=== PATIENT | male | born 1965 | race Two or more races ===

== ENCOUNTER 2016-08-24 21:56 | Observation (INO) | payer OTHER ==
--- NOTE | ~2016-08-24 | MR18 ---
[facility] A Service of [facility] & [facility] RADIOLOGY TEXT RESULTS PATIENT: ADRIANA PARSONS LOCATION: [facility] [address]21-23 : [birth year] UNIT #: [id number] AGE: [address]: Kena Rogers MD SEX: M ORDER DR: [id number] [place] [address] [place], [place] [address] [id number] MR#: [id number] Acc #: [id number] NAME: ADRIANA PARSONS : 1965 SEX: M STUDY DATE/TIME: 08/25/2016 10:51 UNIT: [facility] ROOM: [id number] STUDY DESCRIPTION: MR Brain Wo Contrast Attending Physician: Kena Rogers M.D. Ordering Physician: Bacilio Morales M.D. MRI CENTER REPORT This report is preliminary unless electronic signature is present. EXAM MRI brain without HISTORY Trauma. The patient fell yesterday and hit his head on the floor. Now he cannot remember basic facts about himself. History of hypertension and diabetes. COMMENT MRI of the brain was performed without contrast using routine 1.5T imaging technique. Head CT comparison 08/24/2016. There is no evidence for a recent ischemic insult on the diffusion series. No Chiari-I malformation. No MRI evidence for intracranial hemorrhage. No extra axial fluid collection. Mild generalized prominence of perivascular spaces and moderate nonspecific white matter disease with too numerous to count small foci of white matter signal abnormality seen predominately in the subcortical white matter to a lesser extent in the deep white matter and the periventricular white matter. This is very nonspecific. There is no MRI evidence for intracranial hemorrhage. It is most likely given history of diabetes and hypertension that the white matter disease is due to small vessel disease. It is unlikely that the amount of white matter disease seen is related to the recent fall, particularly without hemorrhagic transformation. The major intracranial flow voids are maintained. The mastoid air cells are clear. Paranasal sinuses are clear. No intracranial mass effect. IMPRESSION 1. No evidence for a recent ischemic insult on the diffusion series. 2. Moderate nonspecific white matter disease probably due to small vessel disease given the risk factors. See above. 3. No extraaxial fluid collection or intracranial mass effect. No MRI evidence for intracranial hemorrhage. [facility]. [facility] A Service of [facility] RADIOLOGY TEXT RESULTS PATIENT: ADRIANA PARSONS LOCATION: [facility] [address]-36 : [birth year] UNIT #: [id number] AGE: [address]: Kena Rogers MD SEX: M ORDER DR: 4. Mild prominence of perivascular spaces in general for age group. Dictated by... Nesha Ly M.D. THIS IS AN ELECTRONICALLY VERIFIED REPORT Nesha Ly M.D. at 08/26/2016 6:19 AM MAMIE/rhoda TD: 08/26/2016 00:49 JOB #: [id number] MRI CENTER REPORT COPY
--- NOTE | ~2016-08-24 | HP ---
Unit #: [id number] #: [id number] Patient: ADRIANA PARSONS [id number] [facility] [address] [place], [place] [address] [id number] I MR#: [id number] NAME: ADRIANA PARSONS ROOM: [id number] Age: 51 Sex: M Admission Date: 08/25/2016 : 1965 Attending Physician: Kena Rogers M.D. HISTORY AND PHYSICAL HISTORY OF PRESENT ILLNESS This 51-year-old Vasiliy male presented to [facility] after a fall at home and not able to memorize anything. The patient speaks Bhutanese only. Therefore, history was obtained with the help of ER staff who can speak Bhutanese. The patient was in his usual state of health when he went to [place] for almost 4 weeks and came back 2 days ago. The patient's roommate picked him up from the airport and states that the patient was his normal self. Please make note the patient's roommate is also present with him, and history was also obtained through his assistance, but he is not able to speak Nepali either. The patient slipped in his shower and hit the back of his head. Since then, he cannot remember anything. He is complaining of mild headache, which is 4/10, but denies any visual problems. There is no focal weakness. Again, the patient denies any visual problems. There is no history of chest pain, tightness, nausea, vomiting or abdominal pain. Otherwise, the patient feels comfortable. He was brought to the ER. CT scan of the head was done, which was negative. ER physician spoke with neurologist, Dr. Aquino, and it was decided to keep the patient in the hospital to do MRI. Unable to obtain complete review of systems because of the language barrier, but through the barrel rifler broach, the patient has only headache. There are no other complaints. PAST MEDICAL HISTORY 1. History of hypertension. 2. The patient says that he was once told he is diabetic but does not take any medications. PAST SURGICAL HISTORY None, as per patient. SOCIAL HISTORY The patient denies smoking, drinking or use of illicit drugs. He is , and he has 2 sons who are not in touch with him because of the divorce. FAMILY HISTORY Family history is positive for hypertension. ALLERGIES There are no known drug allergies. Unit #: [id number] #: [id number] Patient: ADRIANA PARSONS HOME MEDICATIONS As per ER sheet, the patient takes aspirin, Vasotec, Hydrochlorothiazide and Protonix. PHYSICAL EXAMINATION GENERAL: The patient is lying in bed. Comfortable. VITAL SIGNS: Vital signs reveal a temperature of 97.7, pulse 96 per minute, respiratory rate 14 per minute, blood pressure 120/86. HEENT: Examination revealed no conjunctival congestion. Sclera is nonicteric. NECK: Neck is supple. Trachea is central. RESPIRATORY: Examination revealed equal bilaterally. There are no wheezes or crackles. HEART: Regular rate and rhythm. S1, S2. ABDOMEN: Abdomen is soft, nontender. Bowel sounds are present in all 4 quadrants. SKIN: Skin is warm and dry. NEUROLOGIC: The patient is alert to person, place and time. Strength is 5/5 bilaterally. Sensations are intact. Pupils are equal and reactive to light. DIAGNOSTIC STUDIES CARDIOVASCULAR: The patient's EKG revealed sinus tachycardia with heart rate of 102 per minute with nonspecific ST changes. IMAGING: CT scan of the head did not reveal any acute findings as per ER. LABS: The patient's creatinine is 1, sodium 137, potassium 3.6. AST and ALT are within normal limits. WBC is 7.5, hemoglobin 15, platelet count 211. Urinalysis revealed 0-2 WBCs. Urine tox screen was negative. ASSESSMENT This 51-year-old male presented to [facility] after a fall and hitting his head. PLAN 1. Closed head injury with amnesia. The patient will have an MRI, and Dr. Aquino will see the patient in consultation. The patient does not have any focal neurologic symptoms, and he is comfortable. We will keep the patient in the hospital for observation. 2. Hypertension. Will continue the patient's home medications. 3. Questionable history of diabetes. I will order a hemoglobin A1C in the a.m. 4. The plan was discussed in detail with the patient and his roommate, whom the patient states is like his son, and information can be provided to him. 5. The patient stated that he was not taking his medications at home because he ran out of his insurance; therefore, I will add Vasotec as he was apparently taking at home and able to afford. Dictated by Jovana Cyr Unit #: [id number] #: [id number] Patient: ADRIANA PARSONS TD: 08/25/2016 11:50 JOB #: [id number] HISTORY AND PHYSICAL X Kena Rogers MD HISTORY AND PHYSICAL
--- NOTE | ~2016-08-24 | CR72 ---
[facility]. [facility] A Service of [facility] & [facility] RADIOLOGY TEXT RESULTS PATIENT: ADRIANA PARSONS LOCATION: [facility] [id number] : [birth year] UNIT #: [id number] AGE: [address]: Kena Rogers MD SEX: M ORDER DR: [id number] [place] [address] [place], [place] [address] [id number] I MR#: [id number] Acc #: [id number] NAME: ADRIANA PARSONS : 1965 SEX: M STUDY DATE/TIME: 08/24/2016 22:01 UNIT: [facility] ROOM: 35463 STUDY DESCRIPTION: CR Chest Single View Portable Attending Physician: Kena Rogers M.D. Ordering Physician: Bacilio Morales M.D. MEDICAL IMAGING REPORT This report is preliminary unless electronic signature is present EXAM Portable chest HISTORY Chest pain for 3 days. FINDINGS A portable view of the chest was obtained and compared to 09/16/2014. The heart size and vascularity are normal and the lungs are clear, and the bones are normal. IMPRESSION No active disease. Dictated by... Rancho Demarco M.D. THIS IS AN ELECTRONICALLY VERIFIED REPORT Rancho Demarco M.D. at 08/25/2016 4:33 PM IDALIA/ginna TD: 08/25/2016 15:28 JOB #: [id number] MEDICAL IMAGING REPORT COPY
--- NOTE | ~2016-08-24 | CO ---
Unit #: [id number] #: [id number] Patient: ADRIANA PARSONS [id number] [facility] [address] [place], [place] [address] [id number] Guy MR#: [id number] NAME: ADRIANA PARSONS ROOM: 91890 Age: 51 Sex: M Admission Date: 08/25/2016 : 1965 Attending Physician: Kena Rogers M.D. Consultation Date: 08/25/2016 CONSULTATION REPORT REASON FOR CONSULTATION Status post fall and hitting his head and some memory problems. PATIENT IDENTIFICATION This is a 51-year-old, right-handed, Bahamian gentleman, who was evaluated in room 23 in the emergency room at [facility]. SOURCE OF INFORMATION The patient and my discussion with the ER physician. Also Tiago harrington is one of our staff and he acted as truck repair service estimator because this gentleman does not speak any Maltese. PROBLEM LIST 1. Hypertension. 2. GERD. 3. It was told that he has history of diabetes. HISTORY OF PRESENT ILLNESS This is a 51-year-old gentleman, who presented yesterday to the emergency room reporting that he fell and hit his head and then afterwards he could not remember anything. When asked him, he is now telling me that he started remembering things and he remember that he was trying to wash his feet and he bent down and bent too much and fell and the next thing he woke up in the bathroom in the shower. He was having trouble remembering what happened. He did not know that he had just come back from [place], so when the ER physician called me, we already got a CT and I want to make sure that he has an MRI and it does not show any injury specially something like temporal lobe injury. MRI was unremarkable except for some significant frontal small vessel type changes and nothing else was seen and his memory is almost back to almost normal. He knew what happened and he is remembering things more and more. No history of seizures. No nausea or vomiting. No hemorrhage known to us. He denies drugs or alcohol. No prior history of seizure or memory problem. There is some concern that he may have emotional and has exaggeration of some symptoms, but I have no way to confirm that. Unit #: [id number] #: [id number] Patient: ADRIANA PARSONS That is the report that the staff told me and the records, but I do not have any family member to confirm. PAST MEDICAL HISTORY As discussed above. PAST SURGICAL HISTORY Essentially nothing. ALLERGIES No known drug allergies. HOME MEDICATIONS Apparently was aspirin, Vasotec, hydrochlorothiazide, and Protonix. FAMILY HISTORY Hypertension. SOCIAL HISTORY The patient apparently is . He has 2 sons. Apparently, denies tobacco, alcohol, or drug use. REVIEW OF SYSTEMS At present, he is concerned about what happened and the memory, but otherwise no headaches, no double vision, no other issues. No weight issues, fever, chills, rigor, or sweats. HEENT: No headaches, double vision, earache, runny nose, or sore throat. CARDIOVASCULAR: No chest pain, clubbing, cyanosis, orthopnea, or palpitation. PULMONARY: No shortness of air, cough, or expectoration. ABDOMEN: No nausea, vomiting, diarrhea, or constipation. GENITOURINARY: No genitourinary symptoms. EXTREMITIES: No extremity problems. BACK: No back problem. PSYCHIATRIC: No psychotic issue. NEUROLOGIC: As discussed. No other hematologic, dermatologic, or endocrine issues. PHYSICAL EXAMINATION VITAL SIGNS: Temperature 97.7, pulse 98, respirations 21, blood pressure 160/82. NEUROLOGIC: The patient is awake. He is alert. He is oriented. He can name and he can follow commands. No right or left confusion. No finger agnosia. Cranial nerve examination demonstrates full woodard of vision to confrontation. Eye movements are conjugate. I did not see any ptosis. I did not see any nystagmus. Extraocular movements are intact. Sensation on the face and scalp are normal. Strength of muscles of facial expression normal. Hearing seemed to be intact bilaterally. Tongue was midline. Uvula was midline. Palate elevation was normal. Head turning and shoulder shrugs are unremarkable. Motor examination demonstrated normal bulk, tone. Strength was essentially 5/5. Sensory examination intact for soft touch and pain sensation. No Unit #: [id number] #: [id number] Patient: ADRIANA PARSONS extinction was seen. Romberg was not evaluated. Gait examination was deferred. I could not get any reflexes. Toes are equivocal. Coordination was normal. DIAGNOSTIC STUDIES LABORATORY RESULTS: Reviewed. IMAGING STUDIES: Reviewed. IMPRESSION Likely postconcussion syndrome. I had Tiago explain to him what he can expect. His memory is coming back. Retrograde and anterograde amnesia is not uncommon in such condition and he is doing very well otherwise. I recommend that he observe and see how things go. If, later on, his symptoms continue or the triad of postconcussion syndrome occur, I explained to him, then he may need to see a neurologist. If he has further events then cognitive evaluation may be done. Neurologically, I will observe him. He may be discharged. Call me for any other questions, issues, or concerns. If there is a seizure or other issues, please return to the emergency room. Dictated by... Jovana Guevara/markos TD: 08/27/2016 06:19 JOB #: [id number] CONSULTATION REPORT X Vinita Aquino MD X CONSULTATION REPORT
--- NOTE | ~2016-08-24 | CT71 ---
[facility]. [facility] A Service of [facility] & [facility] RADIOLOGY TEXT RESULTS PATIENT: ADRIANA PARSONS LOCATION: [facility] [address]-35 : [birth year] UNIT #: [id number] AGE: [address]: Kena Rogers MD SEX: M ORDER DR: [id number] [id number] [place], [place] [address] [id number] I MR#: [id number] Acc #: [id number] NAME: ADRIANA PARSONS : 1965 SEX: M STUDY DATE/TIME: 08/24/2016 22:12 UNIT: [facility] ROOM: 57347 STUDY DESCRIPTION: CT Head Wo Contrast Attending Physician: Kena Rogers M.D. Ordering Physician: Bacilio Morales M.D. MEDICAL IMAGING REPORT This report is preliminary unless electronic signature is present EXAM CT scan of the head without contrast INDICATIONS Fall today, this morning. Confusion. Patient cannot remember the last 3 days. Head trauma. FINDINGS Axial noncontrast images were obtained from the skull base to the vertex. Ventricular size and configuration are normal. There is no evidence of acute infarct or hemorrhage. There are no extra-axial fluid collections. No mass lesion or mass effect is seen. There are no skull fractures. IMPRESSION Normal noncontrast head CT. Dictated by... Rancho Demarco M.D. THIS IS AN ELECTRONICALLY VERIFIED REPORT Rancho Demarco M.D. at 08/25/2016 4:33 PM IDALIA/ginna TD: 08/25/2016 15:26 JOB #: [id number] MEDICAL IMAGING REPORT COPY
--- NOTE | ~2016-08-24 | EKG ---
PATIENT: ADRIANA PARSONS UNIT #: [id number] Ventricular Rate: 102 BPM Atrial Rate: 102 BPM P-R Interval: 144 ms QRS Duration: 84 ms Q-T Interval: 332 ms QTC Calculation(Bezet): 432 ms P [place]: 48 degrees Calculated R [place]: 19 degrees Calculated T [place]: 30 degrees Diagnosis Line: Sinus tachycardia Diagnosis Line: Nonspecific T wave abnormality Diagnosis Line: Abnormal ECG Diagnosis Line: Diagnosis Line: Confirmed by IZABELA ANN MD ([id number]) on Diagnosis Line: 08/28/2016 3:58:10 PM INTERPRETING MD: MARISSA INGRAM
[~2016-08-24 21:56] MED LIST: ASPIRIN81 MG PO; HYDROCHLOROTH12.5 M1 PO; PROTONIX PO; VASORETIC; VASOTEC2.5 M1 PO
[2016-08-24 22:57] LABS: URINE SOURCE CLEAN CATCH
[2016-08-24 23:06] LABS: URINE APPEARANCE CLEAR; URINE BILIRUBIN NEG (NEG); URINE BLOOD 2+ (NEG); URINE COLOR YELLOW; URINE GLUCOSE NEG (NEG); URINE KETONE NEG (NEG); URINE LEUKOCYTE ESTERASE NEG (NEG); URINE NITRATE NEG (NEG); URINE PH 5.5 (5-8); URINE PROTEIN NEG (NEG); URINE SPECIFIC GRAVITY 1.021 (1.003-1.035); URINE UROBILINOGEN 0.2 MG/DL (NEG)
[2016-08-24 23:09] LABS: URINE BACTERIA AUWI NEG (NEGATIVE); URINE SQUAMOUS EPITHELIAL CELL NONE SEEN /[HPF]; UWBCS1 AUWI 0-2 (0-5)
[2016-08-24 23:10] LABS: BASOPHIL% 0.6 % (0-2.5); EOSINOPHIL# 0.5 X10e3 (0-0.7); EOSINOPHIL% 6.8 % (0.0-7.0); HEMATOCRIT 43.6 % (38.0-50.0); LYMPHOCYTE# 1.5 X10e3 (1.0-3.5); MEAN CELL VOLUME 89.3 FL (83-96); MEAN CORPUSCULAR HEMOGLOBIN 30.8 PG (28-34); MEAN CORPUSCULAR HGB CONC 34.5 g/dL (30-36); MEAN PLATELET VOLUME 8.1 FL (6.5-11.5); MONOCYTE# 0.9 X10e3 (0-1.0); MONOCYTE% 12.3 % (3.0-12.0); NEUTROPHIL# 4.5 X10e3 (1.5-7.1); NEUTROPHIL% 60.3 % (40-75); PLATELET COUNT 211 X10e3 (140-420); RED BLOOD COUNT 4.88 X10e (3.90-5.60); RED CELL DISTRIBUTION WIDTH 14.2 % (11.0-15.5); WHITE BLOOD COUNT 7.5 X10e3 (4.0-10.5)
[2016-08-24 23:11] LABS: DIFF IND NO
[2016-08-24 23:16] LABS: AMPHETAMINE NEG (NEG); BARBITURATES NEG (NEG); BENZODIAZEPINES NEG (NEG); COCAINE NEG (NEG); MARIJUANA NEG (NEG); OPIATES NEG (NEG); TRICYCLIC ANTIDEPRESSANTS NEG (NEG); U METHADONE NEG (NEG)
[2016-08-24 23:31] LABS: ALBUMIN SERUM 4.2 g/dL (3.5-5.0); ALCOHOL BLOOD <5 mg/dL ([, 0]); ALKALINE PHOSPHATASE 185 U/L (32-92); ALT (SGPT) 33 U/L (10-40); AST (SGOT) 25 U/L (10-42); BILIRUBIN, DIRECT <0.1 mg/dL (0.0-0.2); BILIRUBIN,INDIRECT 0.3 mg/dL (0.0-0.9); BILIRUBIN,TOTAL 0.4 mg/dL (0.2-2.0); BLOOD UREA NITROGEN 11 mg/dL (9-23); CALCIUM SERUM 9.3 mg/dL (8.4-10.2); CARBON DIOXIDE 27 mmol/L (22-31); CHLORIDE 106 mmol/L (100-111); GLOM FILT RATE Estimated ABOVE60 mL/min (>60); GLUCOSE FASTING 117 mg/dL (70-110); POTASSIUM 3.4 mmol/L (3.5-5.1); PROTEIN TOTAL SERUM 7.5 g/dL (6.0-8.3); SODIUM 140 mmol/L (135-145)
[2016-08-25] MEDS ORDERED: NO MEDICATIONS (00:34)
[2016-08-25 06:06] LABS: BLOOD UREA NITROGEN 11 mg/dL (9-23); CALCIUM SERUM 8.1 mg/dL (8.4-10.2); CARBON DIOXIDE 28 mmol/L (22-31); CHLORIDE 111 mmol/L (100-111); GLOM FILT RATE Estimated ABOVE60 mL/min (>60); GLUCOSE FASTING 181 mg/dL (70-110); POTASSIUM 3.6 mmol/L (3.5-5.1); SODIUM 137 mmol/L (135-145)
== END 2016-08-26 10:41 | disposition left against medical advice (07) ==
LOC: CED 21:56 → CEDOF 08-25 00:44
PROVIDERS: Emergency Medicine
DX: S09.90XA Unspecified injury of head, initial encounter (principal); W18.2XXA Fall in (into) shower or empty bathtub, initial encounter; Y92.002 Bathroom of unspecified non-institutional (private) residence as the place of occurrence of the external cause; R41.3 Other amnesia; G93.89 Other specified disorders of brain; I10 Essential (primary) hypertension; K21.9 Gastro-esophageal reflux disease without esophagitis; Z79.82 Long term (current) use of aspirin; Z79.899 Other long term (current) drug therapy; Z82.49 Family history of ischemic heart disease and other diseases of the circulatory system
CPT/HCPCS: 36415; 70450; 70551; 71010; 80048; 80076; 80307; 81003; 82947; 85025; 93005; 96360; 96361; 96374; 99285; G0378; G0480; J3480